=== PATIENT | male | born 1960 | race Caucasian/White ===

== ENCOUNTER → 2024-10-06 08:54 | Outpatient (BNVA) | payer MEDICARE, SELFPAY | PROVIDERS: PCP Nurse Practitioner Family; Visit Provider Nurse Practitioner Family | DX: I10 Essential (primary) hypertension (principal); I21.4 Non-ST elevation (NSTEMI) myocardial infarction; E11.9 Type 2 diabetes mellitus without complications; I25.10 Atherosclerotic heart disease of native coronary artery without angina pectoris | CPT/HCPCS: 80053; 80061; 81003; 83036; 85025 ==

== ENCOUNTER → 2025-04-12 09:09 | Outpatient (BNVA) | payer MEDICARE, SELFPAY | PROVIDERS: PCP Nurse Practitioner Family; Visit Provider Nurse Practitioner Family | DX: Z00.00 Encounter for general adult medical examination without abnormal findings (principal); E55.9 Vitamin D deficiency, unspecified; I10 Essential (primary) hypertension; E78.5 Hyperlipidemia, unspecified; E11.9 Type 2 diabetes mellitus without complications; Z12.5 Encounter for screening for malignant neoplasm of prostate | CPT/HCPCS: 80053; 80061; 81003; 82306; 83036; 83735; 84443; 85025; G0103 ==

== ENCOUNTER → 2025-07-01 10:28 | Outpatient (BNVA) | payer MEDICARE, SELFPAY | PROVIDERS: Family Provider Nurse Practitioner Family; PCP Nurse Practitioner Family; Visit Provider Nurse Practitioner Family | DX: E11.9 Type 2 diabetes mellitus without complications (principal); T63.461A Toxic effect of venom of wasps, accidental (unintentional), initial encounter | CPT/HCPCS: 83036 ==

== ENCOUNTER → 2025-08-06 09:11 | Outpatient (BNVA) | payer MEDICARE, SELFPAY | PROVIDERS: Family Provider Nurse Practitioner Family; PCP Nurse Practitioner Family; Visit Provider Nurse Practitioner Family | DX: I10 Essential (primary) hypertension (principal); E07.9 Disorder of thyroid, unspecified; E11.9 Type 2 diabetes mellitus without complications; R53.83 Other fatigue | CPT/HCPCS: 80053; 83036; 84402; 84403; 84439; 84443; 85025; 86376 ==

== ENCOUNTER 2025-08-25 06:31 | Outpatient (CLI) | payer MEDICARE, SELFPAY ==
[2025-08-25 07:01] VITALS: BMI 38.1
--- NOTE | 2025-08-25 07:38 | NMCV_ITS ---
NM shelia perf SPECT r/s* [id number] Bang Calix Age: 64 Gender: M : 1960 Exam Date: 08/25/2025 07:33 Ordering Phys: GENE Story APRN Technologist: LUIS ENRIQUE Mcclain Exam Location: [facility] Indications: CP STRESS TEST Please see separate stress test report in [facility] for full findings IMAGE PROTOCOL Rest/Stress 1 Lexiscan Day Radiopharmaceutical Dose (mCi) Administration Site Administered by Rest: Tc-99m 10.4 IV Nany Juana, INDUSTRIAL ELECTRICIAN JOURNEYMAN Sestamibi Stress:Tc-99m 32.4 IV Nany Juana, INDUSTRIAL ELECTRICIAN JOURNEYMAN Sestamibi Rest: 25-Aug-2025 60 Discovery 630 Stress: 25-Aug-2025 30 Discovery 630 0.4mg Lexiscan. Images obtained in supine and prone position. SPECT RESULTS Technical Quality: Good Raw Data Analysis: Normal Image Corrections: No attenuation or motion correction applied Summed Stress Score: 6 Summed Rest Score: 3 Summed Difference Score: 4 PERFUSION FINDINGS There is a medium sized area of severely reduced tracer counts in the mid and basal inferior wall segments which is predominantly reversible between the stress and the rest images consistent with predominantly inducible ischemia with a small amount of infarction. FUNCTIONAL RESULTS (calculated via Gated SPECT) Stress Image LV EF (%): 54 Stress EDV (mL):137 TID: 1.14 Stress ESV (mL):63 FUNCTIONAL FINDINGS: There is hypokinesis in the inferior wall with overall normal ejection fraction of 54%. IMPRESSIONS Abnormal myocardial perfusion imaging consistent with a medium sized area of moderate ischemia in the inferior wall. There is hypokinesis in the inferior wall with overall normal ejection fraction of 54%. Maksim Guzman MD, FACC (Electronically Signed) Final Date: 25 August 2025 12:39 S
--- NOTE | 2025-08-25 07:38 | ECG_ITS ---
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 Interpretive Statements Procedure: A total of 0.4 mg of Lexiscan was infused over 20 seconds. The stress phase was continued for a total of 5 minutes. Sestamibi was injected 20 seconds after the Lexiscan infusion. Findings:The patient's resting blood pressure was 134/86 mmHg with a heart rate 77 bpm. After Lexiscan injection the heart rate gradually increased to 100 bpm. There was no significant change in the patient's blood pressure. The resting EKG showed normal sinus rhythm. There was no baseline ST-T wave abnormality. After Lexiscan injection there was no arrhythmias, symptoms of angina or ST-T wave abnormalities. Conclusion: 1. Normal EKG response to Lexiscan infusion 2. No Lexiscan induced chest pain or cardiac arrhythmia. 3. Normal blood pressure and heart rate response. 4. Nuclear myocardial perfusion scan pending; see separate report. Electronically Signed On 08-25-2025 13:16:41 CDT by Maksim Guzman M.D. [email or web address]
[2025-08-25 08:17] VITALS: BP 149/89; PULSE 91
== END 2025-08-25 06:32 | disposition home or self-care (01) ==
PROVIDERS: PCP Nurse Practitioner Family; Visit Provider Nurse Practitioner Family
DX: R07.9 Chest pain, unspecified (principal); R94.39 Abnormal result of other cardiovascular function study; I51.89 Other ill-defined heart diseases; I25.89 Other forms of chronic ischemic heart disease
CPT/HCPCS: 36415; 78452; 93017; 93306; 96374; A9500; J2785

== ENCOUNTER → 2025-09-09 13:29 | Outpatient (BNVA) | payer MEDICARE, SELFPAY | PROVIDERS: PCP Nurse Practitioner Family; Referring Provider Nurse Practitioner Family; Visit Provider Internal Medicine Cardiovascular Disease | DX: I25.119 Atherosclerotic heart disease of native coronary artery with unspecified angina pectoris (principal); E78.2 Mixed hyperlipidemia; I10 Essential (primary) hypertension; E11.9 Type 2 diabetes mellitus without complications; Z79.84 Long term (current) use of oral hypoglycemic drugs; Z79.85 Long-term (current) use of injectable non-insulin antidiabetic drugs; Z72.0 Tobacco use; Z95.5 Presence of coronary angioplasty implant and graft; I25.2 Old myocardial infarction; R58 Hemorrhage, not elsewhere classified; R94.39 Abnormal result of other cardiovascular function study; R53.83 Other fatigue | CPT/HCPCS: 36415; 80048; 85025; 85610; 99204; 99214 ==

== ENCOUNTER 2025-09-17 05:43 | Outpatient (CLI) | payer MEDICARE, SELFPAY ==
[2025-09-17] VITALS (34 sets, daily range): BP systolic 110–163; BP diastolic 58–97; PULSE 83–101; RESP 7–24; TEMP 36.5–36.7; O2SAT 91–100; BMI 25.2; BMI 25.7
--- NOTE | 2025-09-17 06:00 | XACV_ITS ---
Exam Room: 2 Ht: 185 cm Wt: 87 kg BSA: 2.12 m2 Gender: Male : 1960 Any Known Allergies: Other Exam Priority: Routine Procedure(s): Procedure Description: Diagnostic procedure Procedure Description: PCI procedure Procedure Description: Drug Eluting Coronary Stent Procedure Description: PTCA Procedure Description: Miscellaneous Procedure Description: ACT Procedure Description: Coronary Angiography Diagnostic Cath Status: Elective Diagnostic Findings * INDICATION: Chest pain/ abnormal stress test. * Left Main has no significant disease. * Circumflex has mild to moderate luminal irregularities. * Proximal Right Coronary Artery: total occlusion, MARTHA: 0 flow. Left to right collaterals seen. * Distal Left Anterior Descending: severe 85% stenosis, MARTHA: 3 flow. * First Obtuse Marginal Branch Segment: severe 90% stenosis, MARTHA: 3 flow. * Coronary angiography shows right dominance. PCI Status: Elective PCI Indication: Other Interventional Findings * Procedure detail: Patient will be engaged left main artery with XB 3.5 guide catheter. IV heparin was administered to maintain anticoagulation. Run-through wire was used to cross theOM stenosis. We predilated the stenosis with 3.0 x 12 mm semicompliant balloon. This was followed by predilation with 3.0 x 20 mm NC balloon. We then placed a 3.0 x 30 mm resolute [place] drug-eluting stent. We then turned our attention to the distal LAD. It was predilated with 2.5 x 15 mm semicompliant balloon. This was followed by placement of 2.5 x 18 mm resolute [place] drug-eluting stent and postdilated with a 2.75 x 12 mm NC balloon. At this time final angiogram was performed that showed excellent stent expansion and no residual stenosis. Guidewire and guide catheter were removed. Patient left the Regional Facilities Manager in a stable condition.. * Distal Left Anterior Descendin% stenosis treated with a AB TREK 2.50X15 RX BALLOON, MDT R EDILBERTO 2.5X18 ARISTEO, and MDT NC EUPHORA RX [id number] BALLOON. 0% residual stenosis, MARTHA: 3 flow. * First Obtuse Marginal Branch Segment: 90% stenosis treated with a AB TREK 3.00X12 RX BALLOON, MDT NC EUPHORA RX [id number] BALLOON, and MDT R EDILBERTO 3.0X30 ARISTEO. 0% residual stenosis, MARTHA: 3 flow. Conclusions 1. Severe OM stenosis s/p PCI with 1 stent. Severe distal LAD stenosis s/p PCI with 1 stent. RCA is chronic total occlusion. 2. Distal Left Anterior Descending was treated with a Balloon, Drug Eluting Stent, and Balloon. 3. First Obtuse Marginal Branch Segment was treated with a Balloon, Balloon, and Drug Eluting Stent. Recommendations * Dual antiplatelet therapy with aspirin and plavix. * Outpatient cardiology follow up in 2 weeks. Interventional RX Recommendation: PCI w/o planned CABG Diagnostic RX Recommendation: PCI w/o planned CABG Anticoagulation: Heparin Pressures Phase:Rest AO : 135 / 71 ( 97 ) @ 8:12:00 AM 97 / 73 ( 85 ) @ 8:14:00 AM 95 / 58 ( 76 ) @ 8:24:00 AM 122 / 76 ( 98 ) @ 8:34:00 AM 146 / 88 ( 115 ) @ 8:42:00 AM Clinical Evaluation EBL: 5mL-10mL Procedural Details Pre-Procedure Time Out. Identified patient by full name and date of as verbalized by the patient/guarantor. Does the consent match the physician's order: Yes. Accurate & Complete Informed Consent: Yes. Inpatient/Outpatient History & Physical on Chart: Yes. If H&P is completed, is and addenduem needed: No; If yes, is the addendum complete: N/A. Visualize and Verify Site with Patient/Guarantor: N/A. Relevant Radiology Images available: Yes. Pre-op teaching completed and patient verbalized understanding. The risks, benefits, and alternatives of sedation and/or procedure were discussed by physician. The patient agrees to continue. Procedure started. Vital chart was stopped. Physician arrived. Current Diagnosis : Chest Pain. [facility] Clinical Fraility Score: 3: Managing Well. Regional Facilities Manager Indications: Worsening Angina. Correct patient, site and procedure confirmed by cath team. Current diagnosis: Chest Pain. PERRLA. Strong, equal hand lead generation marketing manager bilaterally. Lungs clear x 5 lobes. IV Site on Arrival: 20 gauge in the right forearm. IV Fluids: 0.9% NaCl at KVO. 0 mL infused prior to label press operator. Pre Procedural Pulses: bilateral dorsalis pedis was 3+. Pre Procedural Pulses: bilateral posterior tibial was 1+. Pre Procedural Pulses: bilateral radial was 1+. Oxygen started at 2liters/min via nasal canula. bilateral groins was prepped with chloroprep then draped in the usual sterile fashion. Baseline sample Acquired. HR: 87 BPM. Physician scrubbed in. Immediate Pre-Procedure Time Out. Correct Patient: Yes; Correct Procedure: Yes; Correct Site: Yes; Correct Patient Position: Yes; Correct Supplies: Yes; Dried Flammable Prep: Yes; Blood Products Available: N/A;. Lidocaine 1% infiltrated to the right groin. Arterial access obtained with micropuncture set. Lidocaine 1% infiltrated to the right groin. A 5 [place] JL4 catheter in over wire. Multiple views taken of left coronary artery. Catheter removed over the standard wire. A 5 [place] JR4 catheter in over wire. Multiple views taken of right coronary artery. Catheter removed over the standard wire. 6 [place]ian XB 3.5 guide catheter was inserted over the wire. Patient's family updated. Runthrough guidewire was advanced through the guide catheter to lesion in the OM. Wire out. Runthrough guidewire was advanced through the guide catheter to lesion in the OM. Inflation number: 1 The AB TREK 3.00X12 RX BALLOON was reinflated across the 1st Ob Kelli, to 8 RONEN for 0:09 seconds. Inflation number: 2 The AB TREK 3.00X12 RX BALLOON was reinflated across the 1st Ob Kelli, to 12 RONEN for 0:06 seconds. Inflation number: 3 The AB TREK 3.00X12 RX BALLOON was reinflated across the 1st Ob Kelli, to 12 RONEN for 0:08 seconds. Inflation number: 4 The AB TREK 3.00X12 RX BALLOON was reinflated across the 1st Ob Kelli, to 14 RONEN for 0:07 seconds. Balloon out. Inflation number : 5 A MDT NC EUPHORA RX [id number] BALLOON was prepped and advanced across the 1st Ob Kelli , then inflated to 12 RONEN for 0:13 seconds. Inflation number: 6 The MDT NC EUPHORA RX 3.75Q53XR BALLOON was reinflated across the 1st Ob Kelli, to 12 RONEN for 0:09 seconds. Balloon out. Stent inserted to lesion in the OM. Inflation Number : 7 A MDT R EDILBERTO 3.0X30 ARISTEO -Lot Number# _[id number] EXP: 08/16/2027 was prepped and advanced across the 1st Ob Kelli. The stent was deployed at 12 RONEN for 0:15 seconds. Stent balloon out over wire. Results checked. Inflation number: 8 The MDT NC EUPHORA RX 3.67I94UT BALLOON was reinflated across the 1st Ob Kelli, to 16 RONEN for 0:12 seconds. Inflation number: 9 The MDT NC EUPHORA RX [id number] BALLOON was reinflated across the 1st Ob Kelli, to 16 RONEN for 0:10 seconds. Balloon out. Wire redirected to the LAD. Inflation number : 1 A AB TREK 2.50X15 RX BALLOON was prepped and advanced across the Dist LAD , then inflated to 8 RONEN for 0:11 seconds. Inflation number: 2 The AB TREK 2.50X15 RX BALLOON was reinflated across the Dist LAD, to 8 RONEN for 0:08 seconds. Balloon out. Inflation Number : 3 A MDT R EDILBERTO 2.5X18 ARISTEO -Lot Number# _[id number] EXP: 01/05/2028 was prepped and advanced across the Dist LAD. The stent was deployed at 12 RONEN for 0:17 seconds. Stent balloon out over wire. Inflation number : 4 A MDT NC EUPHORA RX [id number] BALLOON was prepped and advanced across the Dist LAD , then inflated to 14 RONEN for 0:08 seconds. Balloon out. Wire out. Results checked. ACT drawn. Results out of range high seconds. Therapeutic limits - pre-heparin administration 90-150 seconds and monitoring heparin during a vascular procedure >250 seconds. Guide catheter out. A Right femoral angiogram was performed to determine safe placement of closure device. Vital chart was stopped. A Suture was successful obtaining hemostatsis at the Right Femoral artery insertion site. Sheath(s) sutured into position with 2-0 silk and sterile 4x4's and Op-site applied over the site. No oozing or signs and symptoms of hematoma noted. Arterial sheath flushed and connected to tranducer and pressure bag with heparinized saline. Post Procedure: Pulses reassessed and unchanged. PERRLA. Strong, equal hand lead generation marketing manager bilaterally. No VTE prophylaxis required. Medication's Wasted: Lidocaine 1% = 4 mL. Total IV fluids: 65 mL. Post-op diagnosis: Stent to OM and LAD. Complications: None. Estimated blood loss: 5mL-10mL. Responsiveness - Normal response to verbal stimuli; alert and oriented, PERRLA. Airway - Unaffected, no intervention required; spontaneous ventilation. Circulation: W/N/L, pulses unchanged. Nausea/Vomiting: No. Procedure completed. ACT drawn. Results 223 seconds. Therapeutic limits - pre-heparin administration 90-150 seconds and monitoring heparin during a vascular procedure >250 seconds. Medication's Wasted: Nitro = 50 mcg. Patient transferred by bed to 1st floor. Access Site Site: Right Femoral artery Sheath Size: 6 Fr Hemostasis Method: Suture Hemostasis Success: Successful Procedure Medications Start: 7:59 AM Stop: 7:59 AM Medication: Versed Amount: 1 mg Route: I.V. Start: 7:59 AM Stop: 7:59 AM Medication: Fentanyl Amount: 50 mcg Route: I.V. Start: 8:02 AM Stop: 8:02 AM Medication: Versed Amount: 1 mg Route: I.V. Start: 8:05 AM Stop: 8:05 AM Medication: Fentanyl Amount: 25 mcg Route: I.V. Start: 8:06 AM Stop: 8:06 AM Medication: Versed 1 mg and Fentanyl 25 mcg Amount: 1 Route: I.V. Start: 8:10 AM Stop: 8:10 AM Medication: Fentanyl Amount: 25 mcg Route: I.V. Start: 8:19 AM Stop: 8:19 AM Medication: Heparin Amount: 7000 units Route: I.V. Start: 8:29 AM Stop: 8:29 AM Medication: Versed 1 mg and Fentanyl 25 mcg Amount: 1 Route: I.V. Start: 8:38 AM Stop: 8:38 AM Medication: Heparin Amount: 1000 units Route: I.V. Start: 8:42 AM Stop: 8:42 AM Medication: Fentanyl Amount: 50 mcg Route: I.V. I, the attending physician, have reviewed and verified all procedure medications. Yes, all medications given per verbal order History/Risk Factors Hypertension: Yes Dyslipidemia: Yes Peripheral Arterial Disease (PAD): No Myocardial Infarction (MD): No Obesity: No Renal Disease: No Tobacco Use: Current/Recent(w/in 1 year) Prior Interventions PCI: Yes CABG: No Valve Surgery: No Report Signatures Finalized by Edgardo Richards MD on 10/05/2025 08:39 AM
--- NOTE | 2025-09-17 07:53 | W.PM.OPSUD ---
Surgery/Procedure H&P Update DATE OF PROCEDURE: September 17, 2025 DATE H&P PERFORMED: 09/09/25 H&P UPDATE INFORMATION: I have reviewed H&P completed within last 30 days, I have examined patient prior to procedure and No changes to prior documentation PREOP DIAGNOSIS: Chest pain/abnormal stress test PRIMARY INDICATION FOR PROCEDURE: Chest pain/abnormal stress test PLANNED PROCEDURE: Operation Date: 09/17/25 07:00 Proposed Procedures p Cardiac Catheterization - [facility] w/wo LV & coros(Left) - Edgardo Richards M.D Possible percutaneous coronary intervention PATIENT REASSESSED PRIOR TO SEDATION, WITH NO CHANGE NOTED: Yes PHYSICAL EXAM: alert, oriented x 3, clear to auscultation bilaterally and regular rate & rhythm AIRWAY EVAL/ANESTHESIA PLAN: normal airway, ASA III, Local Anesthesia, Risks, benefits & alternatives of sedation and/or procedure discussed and Patient agrees to continue as planned ADDITIONAL INFORMATION: Moderate sedation
--- NOTE | 2025-09-17 09:24 | P.PCN_ITS ---
Procedure Note: Date of procedure: 09/17/25 Pre-procedure diagnosis: Chest pain/ abnormal stress test Post-procedure diagnosis: other (Severe distal LAD stenosis, severe OM 1 stenosis) Procedure: Severe distal LAD stenosis s/p PCI with 1 stent, severe OM 1 stenosis s/p PCI with 1 stent. RCA has chronic total occlusion. Dual antiplatelet therapy with aspirin and plavix High intensity statin therapy Performing Provider: Edgardo Richards Estimated blood loss (mL): 10 Complications: None Condition: stable Disposition: floor Coding [facility]
--- NOTE | 2025-09-17 09:30 | PC.NURSE ---
received from cardiac clinical laboratory director via bed,in to room 112-1 at 0915.report received.pt is alert and awake and oriented x 4.denies pain at present.sr w/ freq pvc's on monitor.right groin with arterial sheath intact to pressurized system.drsg is dry and intact.no hematoma noted.right leg is warm to touch and with brisk capillary refill.palpable dp pulse noted.pt instructed in activity restrictions s/p femoral artery procedure...and instructed to notify staff for any bleeding,pain,sob,numbness,or for any concerns at all.pt verb understanding of instructions
[2025-09-17 12:29] LABS: Partial Thromboplastin Time 50.4 SECONDS (23.9-36.7)
[2025-09-17] MEDS: fentaNYL 50 mcg/mL INJ 2mL IVP (13:16)
--- NOTE | 2025-09-17 13:48 | PC.NURSE ---
50 mcg fentanyl given iv prior to sheath removal.right femoral arteerial sheath pulled at 1425.manual pressure applied x 20 min.vss through-out procedure.no hematoma formation noted.right leg remains warm to touch and with brisk capillary refill.palpable dp pulse noted.site dressed with 2x2 gauze and secured with biocclusive drsg.pt instructed in activity restrictions s/p sheath pull..and instructed to notify staff for any bleeding,pain,sob,numbness,or for any concerns at all.pt verb understanding of instructions
[2025-09-18] VITALS (8 sets, daily range): BP systolic 116–146; BP diastolic 57–90; PULSE 78–91; RESP 9–21; TEMP 36.4; O2SAT 92–99; BMI 25.5
[2025-09-18 03:10] LABS: Hematocrit 38.9 % (37-53); Hemoglobin 13.40 g/dL (11.27-16.99); Mean Corpuscular HGB Conc 34.4 g/dL (30-55); Mean Corpuscular Hemoglobin 31.9 pg (27-33); Mean Corpuscular Volume 92.6 fl (82-101); Nucleated Red Blood Cells % 0 %; Platelet Count 217 10^3/cmm (157-399); Red Blood Count 4.20 10^6/uL (3.85-5.65); White Blood Count 21.98 10^3/uL (3.29-11.43)
[2025-09-18 03:43] LABS: Anion Gap 11.8 (5-19); Blood Urea Nitrogen 17 mg/dL (8-23); Calcium 8.8 mg/dL (8.5-10.5); Carbon Dioxide 23 mmol/L (22-29); Chloride 107 mmol/L (98-107); Glucose 197 mg/dL (65-115); Osmolality Calculated 293 mOsm/kg (285-295); Potassium 3.8 mmol/L (3.5-5.1); Sodium 138 mmol/L (136-145)
--- NOTE | 2025-09-18 08:50 | P.PN_ITS ---
Subjective 2 Subjective: Cardiology coverage Patient's status post PCI of the distal LAD and OM1. The patient is feeling okay with no chest pain or shortness of breath. The blood pressure seems to be somewhat elevated. No other specific complaints. Patient has no hematoma or bleeding from the arterial puncture site. Medications: Medication Review Details: Current Medications Acetaminophen (Acetaminophen 325 Mg Tablet) 650 mg PO Q6H PRN PRN Reason: MILD PAIN Al Hydrox/Mg Hydrox/Simethicone (Osih-Dah-Ywstwinmo-Araceli 30 Ml Udc) 30 ml PO Q15M PRN PRN Reason: INDIGESTION Alprazolam (Alprazolam 0.5 Mg Tablet) 0.25 mg PO TID PRN PRN Reason: ANXIETY Aspirin (Aspirin 81 Mg Ec Tablet) 81 mg PO DAILY [facility] Last Admin: 09/18/25 05:39 Dose: 81 mg Atorvastatin Calcium (Atorvastatin 40 Mg Tablet) 40 mg PO BEDTIME [facility] Last Admin: 09/17/25 20:41 Dose: 40 mg Atropine Sulfate (Atropine 1 Mg/Ml Sdv 1 Ml) 0.5 mg IVP PRN PRN PRN Reason: Symptomatic bradycardia Clopidogrel Bisulfate (Clopidogrel 75 Mg Tablet) 75 mg PO DAILY [facility] Last Admin: 09/18/25 05:39 Dose: 75 mg Fentanyl (Fentanyl 50 Mcg/Ml Inj 2ml) 50 mcg IVP PRN PRN PRN Reason: PAIN Last Admin: 09/17/25 13:16 Dose: 50 mcg Sodium Chloride (Sodium Chloride 0.9%) 1,000 mls @ 100 mls/hr IV .Q10H [facility] Last Admin: 09/18/25 07:28 Dose: Not Given Magnesium Hydroxide (Magnesium Hydroxide 30 Ml Udc) 30 ml PO DAILY PRN PRN Reason: CONSTIPATION Naloxone HCl (Naloxone 0.4 Mg/Ml Sdv) 0.1 mg IVP Q2M PRN PRN Reason: RESPIRATORY RATE < 8/MIN Nicotine (Nicotine 21 Mg Patch) 1 patch TRANSDERMA DAILY [facility] Last Admin: 09/18/25 05:38 Dose: 1 patch Nitroglycerin (Nitroglycerin 0.4 Mg Sublingual Tablet) 0.4 mg SUBLINGUAL Q5M PRN PRN Reason: CHEST PAIN Temazepam (Temazepam 15 Mg Capsule) 15 mg PO BEDTIME PRN PRN Reason: INSOMNIA Last Admin: 09/17/25 20:41 Dose: 15 mg Vitals/I&O/Wt Last Vital Signs Temp 97.5 F L 09/18/25 03:19 Pulse 82 09/18/25 06:00 Resp 20 H 09/18/25 05:45 BP 146/90 09/18/25 04:00 Pulse Ox 99 09/18/25 05:45 O2 Del Method Room Air 09/18/25 05:45 09/17/25 09/18/25 09/18/25 22:59 06:59 14:59 Intake Total 1878.333 / 2118.333 480 / 480 Output Total 400 / 800 300 / 1100 Balance 1478.333 / 1318.333 -300 / 1018.333 480 / 480 Weight last 48 hrs Weight 193 lb 12.581 oz Weight 194 lb 3.636 oz Weight 195 lb Weight 191 lb Physical Exam 2 Narrative: GENERAL: The patient is alert and oriented times three. Not in any acute distress. HEENT: No significant pallor, icterus or lymphadenopathy.Oral cavity: There are no mucous membrane lesions. NECK: Trachea appears to be central. No masses noted. No JVD or thyromegaly appreciated. RESPIRATORY: Chest is symmetrical. No intercostals muscle retraction or any accessory muscle activation. There is no chest wall tenderness. Breath sounds are heard bilaterally. No rales or rhonchi heard. No evidence of any consolidation. BREASTS: Deferred. HEART: The heart sounds are normal. No S3 or S4. No significant murmurs. No pericardial rub ABDOMEN: No vessel pulsations or distention. No tenderness. No organomegaly appreciated. Bowel sounds are normally heard. : Deferred. RECTAL: Deferred. LYMPHATIC: No lymphadenopathy noted in the neck. EXTREMITIES: Right groin has no hematoma or bleeding. Good distall pulses MUSCULOSKELETAL: No acute joint deformities or swelling SKIN: There are no significant rashes or ecchymosis NEUROPSYCHIATRIC: The patient is alert and oriented x3. Appears to be in a good mood. No tremors or rigidity noted. Data 09/18/25 02:45 09/18/25 02:45 Other Labs: Laboratory Last Values WBC 21.98 10^3/uL (3.29-11.43) H 09/18/25 02:45 RBC 4.20 10^6/uL (3.85-5.65) 09/18/25 02:45 Hgb 13.40 g/dL (11.27-16.99) 09/18/25 02:45 Hct 38.9 % (37-53) 09/18/25 02:45 MCV 92.6 fl (82-101) 09/18/25 02:45 MCH 31.9 pg (27-33) 09/18/25 02:45 MCHC 34.4 g/dL (30-55) 09/18/25 02:45 RDW 13.3 % (12.1-15.1) 09/18/25 02:45 Plt Count 217 10^3/cmm (157-399) 09/18/25 02:45 MPV 9.2 fL (7.4-10.4) 09/18/25 02:45 Neut % (Auto) 80.5 % 09/18/25 02:45 Lymph % (Auto) 11.6 % 09/18/25 02:45 [place] % (Auto) 6.8 % 09/18/25 02:45 Eos % (Auto) 0.1 % 09/18/25 02:45 Baso % (Auto) 0.2 % 09/18/25 02:45 Neut # (Auto) 17.71 10^3/uL (1.8-7.7) H 09/18/25 02:45 Lymph # (Auto) 2.5 10^3/uL (0.8-4.8) 09/18/25 02:45 [place] # (Auto) 1.5 10^3/uL (0.2-0.9) H 09/18/25 02:45 Eos # (Auto) 0.0 10^3/uL (0.0-0.8) 09/18/25 02:45 Baso # (Auto) 0.1 10^3/uL (0.0-0.1) 09/18/25 02:45 Nucleated RBC % (auto) 0 % 09/18/25 02:45 Nucleated RBCs # 0.0 /100WBC 09/18/25 02:45 APTT 50.4 SECONDS (23.9-36.7) H 09/17/25 12:09 Sodium 138 mmol/L (136-145) 09/18/25 02:45 Potassium 3.8 mmol/L (3.5-5.1) 09/18/25 02:45 Chloride 107 mmol/L (98-107) 09/18/25 02:45 Carbon Dioxide 23 mmol/L (22-29) 09/18/25 02:45 Anion Gap 11.8 (5-19) 09/18/25 02:45 BUN 17 mg/dL (8-23) 09/18/25 02:45 Creatinine 0.7 mg/dL (0.7-1.2) 09/18/25 02:45 GFR Calculation 114.3 mL/min (90-130) 09/18/25 02:45 Glucose 197 mg/dL (65-115) H 09/18/25 02:45 POC Glucose 271 mg/dL (70-110) H 09/17/25 16:51 Calculated Osmolality 293 mOsm/kg (285-295) 09/18/25 02:45 Calcium 8.8 mg/dL (8.5-10.5) 09/18/25 02:45 A&P Assessment and plan 1. Coronary artery disease involving [place] coronary artery of [place] heart with angina pectoris: Patient status post cardiac catheterization followed by PCI of the distal LAD and obtuse marginal 1 artery. Currently remaining stable with no chest pain or any specific cardiac symptoms 2. Primary hypertension: Blood pressures are stage II. The antihypertensive medications need to be optimized. 3. Mixed hyperlipidemia: May continue on the current management. 4. Type 2 diabetes mellitus without complication, without long-term current use of insulin: Patient's blood sugar has been staying high especially since he stopped taking the metformin. He is wondering whether we can continue the Mounjaro. Plan: Patient may start taking the Mounjaro. Restart the metformin on Saturday Patient will be seen at [facility] in 1-2 weeks Patient will be seen by Dr. Richards in 6 weeks in the office. Patient is advised to continue the medications as mentioned above. The importance of compliance to diet, medications and exercise were discussed. In the event of the patient developing chest pain ,unusual palpitations or any new symptoms, is advised to contact me or come to the hospital. PDMP PDMP Reviewed: Not Reviewed Attestations 2 Medical Necessity Statement*: Discharge home today Coding Level of Care Code 09829 Diagnoses Coronary artery disease involving [place] coronary artery of [place] heart with angina pectoris I25.119 Coronary Disease-Associated Artery/Lesion type: [place] artery [place] vs. transplanted heart: [place] heart Associated angina: with unspecified form of angina Primary hypertension I10 Hypertension type: primary hypertension Mixed hyperlipidemia E78.2 Hyperlipidemia type: mixed hyperlipidemia Type 2 diabetes mellitus without complication, without long-term current use of insulin E11.9 Diabetes mellitus type: type 2 Diabetes mellitus superintendent container terminal insulin use: without superintendent container terminal use Diabetes mellitus complication status: without complication
== END 2025-09-18 10:23 | disposition home or self-care (01) ==
LOC: CCL 05:49 → CSU 10:19
PROVIDERS: Nurse Practitioner Family; PCP Nurse Practitioner Family; Visit Provider Internal Medicine
DX: I25.119 Atherosclerotic heart disease of native coronary artery with unspecified angina pectoris (principal); I25.82 Chronic total occlusion of coronary artery; I10 Essential (primary) hypertension; E78.5 Hyperlipidemia, unspecified; Z79.82 Long term (current) use of aspirin; E78.2 Mixed hyperlipidemia; E11.9 Type 2 diabetes mellitus without complications; K21.9 Gastro-esophageal reflux disease without esophagitis; I25.2 Old myocardial infarction; Z82.49 Family history of ischemic heart disease and other diseases of the circulatory system; F17.210 Nicotine dependence, cigarettes, uncomplicated; Z95.5 Presence of coronary angioplasty implant and graft; Z79.84 Long term (current) use of oral hypoglycemic drugs
CPT/HCPCS: 36415; 36416; 80048; 82962; 85025; 85347; 85730; 93454; 99152; 99153; C1725; C1769; C1874; C1887; C1894; C9600; C9601; J1644; J2250; J3010; J3490; J7030; J9999; Q9967

== ENCOUNTER → 2025-10-12 12:39 | Outpatient (BNVA) | payer MEDICARE, SELFPAY | PROVIDERS: PCP Nurse Practitioner Family; Visit Provider Nurse Practitioner Family | DX: I25.119 Atherosclerotic heart disease of native coronary artery with unspecified angina pectoris (principal); Z95.5 Presence of coronary angioplasty implant and graft; E78.2 Mixed hyperlipidemia; I10 Essential (primary) hypertension; F17.210 Nicotine dependence, cigarettes, uncomplicated; R42 Dizziness and giddiness; R53.83 Other fatigue; E11.9 Type 2 diabetes mellitus without complications; Z79.85 Long-term (current) use of injectable non-insulin antidiabetic drugs | CPT/HCPCS: 99214 ==

== ENCOUNTER → 2025-10-15 08:40 | Outpatient (BNVA) | payer MEDICARE, SELFPAY | PROVIDERS: PCP Nurse Practitioner Family; Visit Provider Nurse Practitioner Family | DX: I25.119 Atherosclerotic heart disease of native coronary artery with unspecified angina pectoris (principal) | CPT/HCPCS: 80048 ==